=== PATIENT | male | born 1965 | race Hispanic/Latino ===

== ENCOUNTER 2017-06-11 10:14 | Emergency (ER) | payer MEDICAID ==
[2017-06-11 10:22] VITALS: TEMP 97.9
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
[2017-06-11 11:19] LABS: URINE APPEARANCE CLEAR (CLEAR); URINE BILIRUBIN NEGATIVE (NEGATIVE); URINE BLOOD MODERATE (NEGATIVE); URINE COLOR YELLOW (YELLOW); URINE GLUCOSE (UA) NEGATIVE (NEGATIVE); URINE KETONE NEGATIVE (NEGATIVE); URINE LEUKOCYTE ESTERASE NEGATIVE Leu/uL (NEGATIVE); URINE PROTEIN 30 mg/dL (<30 mg/dL); URINE UROBILINOGEN 0.2 E.U./dL (<1 E.U./dL)
[2017-06-11] MEDS ORDERED: Tmp-Smz 800 mg-160 mg DS Tab PO STA (11:27)
[2017-06-11 11:34] LABS: URINE EPITHELIAL CELLS 0 - 2 /hpf (0-5); URINE RBC 20 - 25 /hpf (0-2); URINE WBC 0 - 2 /hpf (0-6)
[2017-06-11 11:49] VITALS: BP 129/78; PULSE 78; RESP 18; O2SAT 98
== END 2017-06-11 11:49 | disposition home or self-care (01) ==
LOC: ED 10:14
DX: R33.9 Retention of urine, unspecified (principal); I10 Essential (primary) hypertension; I50.9 Heart failure, unspecified; Z85.46 Personal history of malignant neoplasm of prostate

== ENCOUNTER 2017-07-07 21:46 | Emergency (ER) | payer MEDICAID ==
[2017-07-07 22:14] VITALS: TEMP 98; BMI 38.7
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
[2017-07-07 22:46] LABS: URINE BILIRUBIN NEGATIVE (NEGATIVE); URINE BLOOD SMALL (NEGATIVE); URINE GLUCOSE (UA) NEGATIVE (NEGATIVE); URINE LEUKOCYTE ESTERASE TRACE Leu/uL (NEGATIVE); URINE NITRATE NEGATIVE (NEGATIVE); URINE PROTEIN 30 mg/dL (<30 mg/dL); URINE UROBILINOGEN 0.2 E.U./dL (<1 E.U./dL)
[2017-07-07 22:52] LABS: URINE APPEARANCE CLEAR (CLEAR); URINE COLOR YELLOW (YELLOW)
[2017-07-07 23:02] LABS: URINE BACTERIA FEW (NEG); URINE EPITHELIAL CELLS 0 - 2 /hpf (0-5); URINE WBC 0 - 2 /hpf (0-6)
[2017-07-07 23:30] VITALS: BP 134/97; PULSE 89; RESP 16; O2SAT 98
== END 2017-07-07 23:32 | disposition home or self-care (01) ==
LOC: ED 21:46
DX: R33.9 Retention of urine, unspecified (principal)

== ENCOUNTER 2017-07-19 00:07 | Emergency (ER) | payer MEDICAID ==
[2017-07-19 00:07] VITALS: BMI 38.7
[2017-07-19 02:26] VITALS: BP 132/82; PULSE 89; RESP 18; TEMP 98; O2SAT 100
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
== END 2017-07-19 02:10 | disposition home or self-care (01) ==
LOC: ED 00:07
DX: R33.9 Retention of urine, unspecified (principal)

== ENCOUNTER 2018-06-24 13:42 | Emergency (ER) | payer OTHER, BC, MEDICAID ==
[2018-06-24 13:42] VITALS: BMI 38.7
[2018-06-24 14:08] VITALS: TEMP 98.5
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
[2018-06-24 16:10] VITALS: RESP 18; O2SAT 95
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
[2018-06-24 16:47] VITALS: PULSE 105
[2018-06-24 16:58] VITALS: BP 150/102
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
== END 2018-06-24 17:10 | disposition home or self-care (01) ==
LOC: ED 13:42
DX: S16.1XXA Strain of muscle, fascia and tendon at neck level, initial encounter (principal); S39.012A Strain of muscle, fascia and tendon of lower back, initial encounter; V49.49XA Driver injured in collision with other motor vehicles in traffic accident, initial encounter; Y92.410 Unspecified street and highway as the place of occurrence of the external cause; I10 Essential (primary) hypertension

== ENCOUNTER 2018-10-03 09:11 | Outpatient (CLI) | payer BC, MEDICAID | END 2018-10-03 09:12 | disposition home or self-care (01) | LOC: RAD 09:11 | DX: G57.10 Meralgia paresthetica, unspecified lower limb (principal); F41.9 Anxiety disorder, unspecified; N52.9 Male erectile dysfunction, unspecified ==